=== PATIENT | male | born 1970 | race Caucasian/White ===

== ENCOUNTER → 2018-03-12 | Outpatient (CLI) | payer BC ==
[2018-03-12 13:20] LABS: C REACTIVE PROTEIN QUANTITATIV < 0.30 MG/DL (0.00-0.30); FREE T4 1.23 NG/DL (0.76-1.46)
[2018-03-12 13:27] LABS: ERYTHROCYTE SEDIMENTATION RATE 2 mm/hr (0-20)
[2018-03-14 00:07] LABS: TISSUE TRANSGLUTAMINASE IgA 8 U/mL (0-3)
== END ==
LOC: M WUC 09:44
DX: R19.4 Change in bowel habit (principal)
CPT/HCPCS: 84443

== ENCOUNTER → 2018-03-13 | Outpatient (REF) | payer BC | LOC: M LAB REF 09:17 | DX: R19.4 Change in bowel habit (principal) | CPT/HCPCS: 83630 ==

== ENCOUNTER 2018-04-16 11:16 | Emergency (ER) | payer BC ==
[2018-04-16] MEDS: NS 500 ML IV (12:16)
[2018-04-16] MEDS: KETOROLAC 30 MG/ML VIAL (J1885) IV (12:16)
[2018-04-16] MEDS: MORPHINE 4 MG/ML 1ML VIAL/SYRINGE (J2270) IV (12:16)
[2018-04-16 12:22] LABS: BASO # 0.1 10^3/uL (0.0-0.2); BASO % 0.9 % (0.0-1.0); EOS # 0.1 10^3/uL (0.0-0.50); EOS % 1.1 % (0.0-3.0); HEMATOCRIT 42.6 % (42.0-52.0); HEMOGLOBIN 14.7 g/dl (13.5-17.5); IMMATURE GRANULOCYTE % 0.6 % (0-3.0); LYMPH # 1.9 10^3/uL (1.5-4.5); LYMPH % 23.1 % (24.0-44.0); MEAN CORPUSCULAR HEMOGLOBIN 31.4 pg (27.0-33.0); MEAN CORPUSCULAR HGB CONC 34.5 g/dl (32.0-36.5); MONO # 0.6 10^3/uL (0.0-0.8); MONO % 7.8 % (0.0-5.0); NEUTROPHILS # 5.4 10^3/uL (1.8-7.7); NEUTROPHILS % 66.5 % (36.0-66.0); PLATELET COUNT, AUTOMATED 286 10^3/uL (150-450); RED BLOOD COUNT 4.68 10^6/uL (4.30-6.10); RED CELL DISTRIBUTION WIDTH 12.8 % (11.5-14.5); WHITE BLOOD COUNT 8.2 10^3/uL (4.0-10.0)
[2018-04-16 12:39] LABS: BLOOD UREA NITROGEN 8 MG/DL (7-18); GLOMERULAR FILTRATION RATE > 60.0 (>56); GLUCOSE, FASTING 97 MG/DL (70-100); POTASSIUM SERUM 3.9 MEQ/L (3.5-5.1); SODIUM LEVEL 143 MEQ/L (136-145)
[2018-04-16 12:40] LABS: ALKALINE PHOSPHATASE 94 U/L (45-117); ALT/SGPT 24 U/L (12-78); ANION GAP 6 MEQ/L (8-16); AST/SGOT 14 U/L (7-37); BILIRUBIN,TOTAL 0.5 MG/DL (0.2-1.0); CALCIUM LEVEL 8.7 MG/DL (8.5-10.1); CARBON DIOXIDE LEVEL 27 MEQ/L (21-32); CHLORIDE LEVEL 110 MEQ/L (98-107)
[2018-04-16 12:41] LABS: ALBUMIN 3.5 GM/DL (3.2-5.2); AMYLASE 23 U/L (25-115); TOTAL PROTEIN 6.9 GM/DL (6.4-8.2)
[2018-04-16 12:42] LABS: ALBUMIN/GLOBULIN RATIO 1.03 (1.00-1.93); C REACTIVE PROTEIN QUANTITATIV < 0.30 MG/DL (0.00-0.30); LIPASE 71 U/L (73-393)
[2018-04-16 12:50] LABS: KETONE, URINE AUTO RFX NEGATIVE (NEGATIVE); LEUKOCYTE ESTERASE UR AUTO RFX NEGATIVE (NEGATIVE); MUCUS, URINE RFX SMALL (NEGATIVE); NITRITE, URINE AUTO RFX NEGATIVE (NEGATIVE); RBC, URINE AUTO RFX 2 /HPF (0-3); SPECIFIC GRAVITY UR AUTO RFX 1.019 (1.002-1.035); SQUAM EPITHELIAL CELL UR AURFX 0 /HPF (0-6); WBC, URINE AUTO RFX 1 /HPF (0-3)
== END 2018-04-16 13:38 | disposition home or self-care (01) ==
LOC: M ED 11:16
DX: R10.9 Unspecified abdominal pain (principal); F17.200 Nicotine dependence, unspecified, uncomplicated
CPT/HCPCS: J2270

== ENCOUNTER 2018-04-30 06:51 | Day surgery (SDC) | payer BC ==
[~2018-04-30 06:51] MED LIST: SIMETHICONE 40MG/0.6ML DROPS 30ML As Ordered
[2018-04-30] MEDS ORDERED: NS 1,000 ML IV (07:15)
[2018-04-30] MEDS ORDERED: PROPOFOL 200 MG/20 ML VIAL As Ordered ×2 (07:53→08:33)
[2018-04-30] MEDS ORDERED: LIDOCAINE 2% INJ 100 MG/5 ML SDV (FOR ANES.) As Ordered (07:53)
[2018-04-30] MEDS ORDERED: fentaNYL 100 MCG/2 ML INJECTION (J3010) As Ordered (07:54)
== END 2018-04-30 09:35 | disposition home or self-care (01) ==
LOC: M OPP 06:51
DX: Z12.11 Encounter for screening for malignant neoplasm of colon (principal); Z80.0 Family history of malignant neoplasm of digestive organs; R19.7 Diarrhea, unspecified; D49.0 Neoplasm of unspecified behavior of digestive system; D12.5 Benign neoplasm of sigmoid colon; D12.0 Benign neoplasm of cecum; R12 Heartburn; R76.8 Other specified abnormal immunological findings in serum; K21.9 Gastro-esophageal reflux disease without esophagitis; F41.9 Anxiety disorder, unspecified; G47.30 Sleep apnea, unspecified; R06.83 Snoring; M54.2 Cervicalgia; F17.210 Nicotine dependence, cigarettes, uncomplicated; Z88.0 Allergy status to penicillin; Z79.899 Other long term (current) drug therapy; Z80.42 Family history of malignant neoplasm of prostate; Z80.3 Family history of malignant neoplasm of breast
CPT/HCPCS: 45385

== ENCOUNTER 2018-12-10 06:43 | Day surgery (SDC) | payer BC ==
[~2018-12-10] VITALS: Ht 177.8 cm; Wt 100.2 kg
[~2018-12-10 06:43] MED LIST changes: +AMBI5TAB PO; +BUPR300T34 PO; +DEXI60CA2 PO; +FLUTISP; +IBUP-1114 PO; +KETO10TAB PO; +META0.52 PO; +OMEP40CA2 PO; +QNAS80AE; -SIMETHICONE 40MG/0.6ML DROPS 30ML As Ordered; +TIZA6CAP PO; +VITA10006 PO; +VITMTA PO; +ZOLP10TA2 PO
[2018-12-10] MEDS ORDERED: PROPOFOL 200 MG/20 ML VIAL As Ordered ONE ×2 (07:11→07:47)
[2018-12-10] MEDS ORDERED: LIDOCAINE 2% INJ 100 MG/5 ML SDV (FOR ANES.) As Ordered ONE (07:13)
[2018-12-10] MEDS ORDERED: NS 1,000 ML IV ONE (07:15)
--- NOTE | 2018-12-10 08:02 | ROOR ---
Patient Name: Len Bell Procedure Date: 12/10/2018 7:31 AM Date of : 1970 Age: 48 Room: [facility] Gender: Male Note Status: Finalized Procedure: Colonoscopy Indications: Surveillance: Personal history of piecemeal removal of large sessile adenoma on last colonoscopy 6 months ago Providers: Franki MCLAIN MD Referring MD: OLEG MURDOCK JR, MD Requesting Provider: Medicines: Monitored Anesthesia Care Complications: No immediate complications. Procedure: Pre-Anesthesia Assessment: - The heart rate, respiratory rate, oxygen saturations, blood pressure, adequacy of pulmonary ventilation, and response to care were monitored throughout the procedure. The Colonoscope was introduced through the anus and advanced to the cecum, identified by appendiceal orifice and ileocecal valve. The colonoscopy was performed without difficulty. The patient tolerated the procedure well. The quality of the bowel preparation was good. Findings: The perianal and digital rectal examinations were normal. A tattoo was seen in the mid rectum. A post-polypectomy scar was found at the tattoo site. A localized area of mildly nodular mucosa was found in the mid rectum. Biopsies were taken with a cold forceps for histology. Fulguration to ablate the lesion remnants by argon plasma at 0.8 liters/minute and 30 mckay was successful. Three sessile polyps were found in the sigmoid colon. The polyps were 4 to 5 mm in size. These polyps were removed with a cold snare. Resection and retrieval were complete. The exam was otherwise without abnormality on direct and retroflexion views. Impression: - A tattoo was seen in the mid rectum. A post-polypectomy scar with nodular mucosa was seen. This was biopsied and treated with argon plasma coagulation (APC). - Three 4 to 5 mm polyps in the sigmoid colon, removed with a cold snare. Resected and retrieved. - The examination was otherwise normal on direct and retroflexion views. Recommendation: - Await pathology results. - If the pathology report reveals adenomatous tissue, then repeat the colonoscopy for retreatment in 6 months. - If the pathology report reveals no adenomatous tissue, then repeat the colonoscopy for surveillance in 3 years. Franki Mclain MD Franki MCLAIN MD 12/10/2018 8:01:35 AM Electronically signed by Franki MCLAIN MD Number of Addenda: 0 Note Initiated On: 12/10/2018 7:31 AM Estimated Blood Loss: Estimated blood loss: none.
[2018-12-10 08:15] VITALS: BP 114/74
== END 2018-12-10 08:24 | disposition home or self-care (01) ==
LOC: M OPP 06:43
PROVIDERS: ATTEND Internal Medicine Gastroenterology
DX: D12.5 Benign neoplasm of sigmoid colon (principal); K62.89 Other specified diseases of anus and rectum; Z86.010 Personal history of colon polyps

== ENCOUNTER → 2020-01-08 | Outpatient (REF) | payer BC ==
[~2020-01-08] MED LIST changes: -BUPR300T34 PO; +BUPR300T92 PO; -OMEP40CA2 PO; +OMEP40CA97 PO
== END ==
LOC: M LAB REF 16:09
PROVIDERS: ATTEND Internal Medicine
DX: Z11.59 Encounter for screening for other viral diseases (principal)

== ENCOUNTER → 2020-06-29 | Outpatient (REF) | payer BC, OTHER | LOC: M LAB REF 11:22 | PROVIDERS: ATTEND Internal Medicine | DX: R94.5 Abnormal results of liver function studies (principal) ==

== ENCOUNTER 2021-09-13 13:56 | Emergency (ER) | payer OTHER, BC ==
[~2021-09-13] VITALS: Ht 180.3 cm; Wt 117.6 kg
[~2021-09-13 13:56] MED LIST changes: +OMEP40CA4 PO; -OMEP40CA97 PO
[2021-09-13 16:36] VITALS: BP 138/80
[2021-09-13] MEDS ORDERED: METH-1164 PO ×2 (16:50→16:51)
[2021-09-13] MEDS ORDERED: KETOROLAC 30 MG/ML 1ML VIAL IM ONE (16:50)
== END 2021-09-13 17:34 | disposition home or self-care (01) ==
LOC: M ED 13:56
DX: Z04.1 Encounter for examination and observation following transport accident (principal); M54.2 Cervicalgia; K21.9 Gastro-esophageal reflux disease without esophagitis; M43.22 Fusion of spine, cervical region; Z79.899 Other long term (current) drug therapy; F17.210 Nicotine dependence, cigarettes, uncomplicated
CPT/HCPCS: 72125; 96372; 99283; J1885

== ENCOUNTER → 2022-01-26 | Outpatient (CLI) | payer BC, SELFPAY ==
[~2022-01-26] MED LIST changes: +METH-1164 PO
== END ==
LOC: M LABSMTC 09:32
PROVIDERS: ATTEND Anesthesiology
DX: Z11.52 Encounter for screening for COVID-19 (principal); Z20.822 Contact with and (suspected) exposure to COVID-19

== ENCOUNTER 2022-01-31 06:52 | Day surgery (SDC) | payer BC ==
[~2022-01-31] VITALS: Ht 180.3 cm; Wt 114.3 kg
[~2022-01-31 06:52] MED LIST changes: +NS 1,000 ML IV ONE
[2022-01-31] MEDS ORDERED: propofoL 200 MG/20 ML VIAL As Ordered ONE (08:56)
[2022-01-31 09:00] VITALS: BP 137/91
== END 2022-01-31 09:06 | disposition home or self-care (01) ==
LOC: M OPP 06:52
PROVIDERS: ATTEND Internal Medicine Gastroenterology
DX: Z12.11 Encounter for screening for malignant neoplasm of colon (principal); Z86.010 Personal history of colon polyps; Z80.0 Family history of malignant neoplasm of digestive organs; D12.2 Benign neoplasm of ascending colon; K64.8 Other hemorrhoids; Z79.899 Other long term (current) drug therapy; Z88.0 Allergy status to penicillin; Z80.42 Family history of malignant neoplasm of prostate; F17.210 Nicotine dependence, cigarettes, uncomplicated

== ENCOUNTER → 2022-02-28 | Outpatient (CLI) | payer BC ==
[~2022-02-28] MED LIST changes: -NS 1,000 ML IV ONE
== END ==
LOC: M WHC 12:53
PROVIDERS: ATTEND Internal Medicine
DX: D24.2 Benign neoplasm of left breast (principal)
CPT/HCPCS: 76642; 77066; G0279

== ENCOUNTER → 2022-07-22 | Outpatient (CLI) | payer BC | LOC: M RAD 07:29 | PROVIDERS: ATTEND Internal Medicine | DX: F17.210 Nicotine dependence, cigarettes, uncomplicated (principal) ==

== ENCOUNTER 2022-10-28 14:22 | Emergency (ER) | payer OTHER, BC ==
[~2022-10-28] VITALS: Ht 180.3 cm; Wt 117.0 kg
[2022-10-28 17:11] VITALS: BP 157/97
== END 2022-10-28 17:13 | disposition home or self-care (01) ==
LOC: M ED 14:22
DX: M23.91 Unspecified internal derangement of right knee (principal); K21.9 Gastro-esophageal reflux disease without esophagitis; M54.9 Dorsalgia, unspecified; G47.33 Obstructive sleep apnea (adult) (pediatric); G47.00 Insomnia, unspecified; Z88.0 Allergy status to penicillin; Z88.1 Allergy status to other antibiotic agents; Z79.899 Other long term (current) drug therapy

== ENCOUNTER 2022-11-30 07:38 | Outpatient (RCR) | payer OTHER, BC ==
[~2022-11-30 07:38] MED LIST changes: +FLUT50SP17; -FLUTISP
== END 2022-12-04 ==
LOC: M PT 07:38
PROVIDERS: ATTEND Orthopaedic Surgery
DX: S83.411A Sprain of medial collateral ligament of right knee, initial encounter (principal); M25.561 Pain in right knee

== ENCOUNTER → 2022-12-21 | Outpatient (CLI) | payer BC, OTHER | LOC: M PLAIMG 08:26 | PROVIDERS: ATTEND Orthopaedic Surgery | DX: S83.411A Sprain of medial collateral ligament of right knee, initial encounter (principal); X58.XXXA Exposure to other specified factors, initial encounter; Y92.89 Other specified places as the place of occurrence of the external cause; Y93.89 Activity, other specified; Y99.8 Other external cause status ==

== ENCOUNTER 2022-12-22 09:06 | Outpatient (RCR) | payer OTHER, BC | END 2023-01-04 | LOC: M PT 09:06 | PROVIDERS: ATTEND Orthopaedic Surgery | DX: M25.561 Pain in right knee (principal); S83.411A Sprain of medial collateral ligament of right knee, initial encounter ==

== ENCOUNTER 2023-01-31 08:30 | Outpatient (RCR) | payer OTHER, BC | END 2023-02-03 | LOC: M PT 08:30 | PROVIDERS: ATTEND Orthopaedic Surgery | DX: S83.411A Sprain of medial collateral ligament of right knee, initial encounter (principal); M25.561 Pain in right knee; S83.231A Complex tear of medial meniscus, current injury, right knee, initial encounter; S83.282A Other tear of lateral meniscus, current injury, left knee, initial encounter; X58.XXXA Exposure to other specified factors, initial encounter; Y92.9 Unspecified place or not applicable; Y93.9 Activity, unspecified; Y99.9 Unspecified external cause status ==

== ENCOUNTER → 2023-03-06 | Outpatient (RCR) | payer OTHER, BC | LOC: M PT 02-20 09:05 | PROVIDERS: ATTEND Orthopaedic Surgery | DX: S83.411A Sprain of medial collateral ligament of right knee, initial encounter (principal); M25.561 Pain in right knee ==

== ENCOUNTER 2023-09-28 09:08 | Outpatient (RCR) | payer OTHER, BC ==
[~2023-09-28 09:08] MED LIST changes: -FLUT50SP17; +FLUTISP
== END 2023-10-05 ==
LOC: M PT 09:08
PROVIDERS: ATTEND Internal Medicine
DX: M25.561 Pain in right knee (principal)

== ENCOUNTER → 2023-10-16 | Outpatient (CLI) | payer BC | LOC: M RAD 08:22 | PROVIDERS: ATTEND Internal Medicine | DX: Z12.2 Encounter for screening for malignant neoplasm of respiratory organs (principal) ==

== ENCOUNTER → 2023-10-23 | Outpatient (REF) | payer BC, OTHER | LOC: M LAB REF 16:28 | PROVIDERS: ATTEND Internal Medicine | DX: M10.071 Idiopathic gout, right ankle and foot (principal) ==

== ENCOUNTER 2023-10-27 09:04 | Outpatient (RCR) | payer OTHER, BC | END 2023-11-05 | LOC: M PT 09:04 | PROVIDERS: ATTEND Internal Medicine | DX: M25.561 Pain in right knee (principal) ==

== ENCOUNTER → 2024-10-02 | Outpatient (REF) | payer BC, OTHER ==
[~2024-10-02] MED LIST changes: +BUPR-597 PO; -BUPR300T92 PO
== END ==
LOC: M LAB REF 12:24
PROVIDERS: ATTEND Internal Medicine
DX: M10.9 Gout, unspecified (principal)

== ENCOUNTER 2024-10-08 17:11 | Emergency (ER) | payer OTHER, BC ==
[~2024-10-08] VITALS: Ht 177.8 cm; Wt 120.0 kg
[2024-10-08] MEDS ORDERED: ATOR1TAB21 (17:20)
[2024-10-08] MEDS ORDERED: BUSP10TA (17:20)
[2024-10-09] MEDS: IBUPROFEN 600MG TAB PO ONE (00:45)
[2024-10-09 00:49] VITALS: BP 160/74; TEMP 97.5; O2SAT 98
== END 2024-10-09 00:45 | disposition home or self-care (01) ==
LOC: M ED 17:11
DX: M54.2 Cervicalgia (principal); F10.10 Alcohol abuse, uncomplicated; Z88.0 Allergy status to penicillin; Z88.1 Allergy status to other antibiotic agents; Z79.899 Other long term (current) drug therapy

== ENCOUNTER → 2024-12-12 | Outpatient (CLI) | payer BC ==
[~2024-12-12] MED LIST changes: -AMBI5TAB PO; +ATOR1TAB21; -BUPR-597 PO; +BUPR-766 PO; +BUSP10TA; +ZOLP-532 PO
== END ==
LOC: M RAD 15:49
PROVIDERS: ATTEND Internal Medicine
DX: Z12.2 Encounter for screening for malignant neoplasm of respiratory organs (principal); F17.211 Nicotine dependence, cigarettes, in remission

== ENCOUNTER 2025-06-02 06:43 | Day surgery (SDC) | payer BC ==
[~2025-06-02] VITALS: Ht 180.3 cm; Wt 115.7 kg
[~2025-06-02 06:43] MED LIST changes: +ACET-897 PO; +ALEV220T22 PO; +AMLO1TAB25 PO; -ATOR1TAB21; +ATOR1TAB21 PO; +MEDOXOMIL PO; +OLME20TA50 PO; +OMEP40CA5 PO; +PRED10PA2 PO; +TADA20TA PO; +ZOLP10TA11 PO; -ZOLP10TA2 PO; +ZYRT10TA12 PO
[2025-06-02] MEDS ORDERED: SIMETHICONE 40MG/0.6ML DROPS 30ML As Ordered ONE (06:46)
[2025-06-02] MEDS ORDERED: LIDOCAINE 2% 100 MG/5 ML SDV (FOR ANES.) As Ordered ONE (07:28)
[2025-06-02] MEDS ORDERED: GLYCOPYRROLATE INJ 0.2 MG/ML 2 ML VIAL As Ordered ONE (07:28)
[2025-06-02 07:51] VITALS: TEMP 97.8
[2025-06-02 08:06] VITALS: BP 118/86; O2SAT 95
== END 2025-06-02 08:14 | disposition home or self-care (01) ==
LOC: M OPP 06:43
PROVIDERS: ATTEND Internal Medicine Gastroenterology
DX: D12.4 Benign neoplasm of descending colon (principal); K57.30 Diverticulosis of large intestine without perforation or abscess without bleeding; K64.8 Other hemorrhoids; Z86.0101 Personal history of adenomatous and serrated colon polyps; G47.30 Sleep apnea, unspecified; Z88.0 Allergy status to penicillin; Z88.1 Allergy status to other antibiotic agents; Z79.51 Long term (current) use of inhaled steroids; Z79.52 Long term (current) use of systemic steroids; Z79.899 Other long term (current) drug therapy
CPT/HCPCS: 45385; 88305; J1596